=== PATIENT | male | born 1995 | race African-American/Black ===

== ENCOUNTER 2019-04-24 07:15 | Inpatient (IN) | payer SELFPAY ==
[2019-04-24 08:33] LABS: #Basophils 0.1 thou/uL (0.0-0.2); #Eosinphils 0.1 thou/uL (0.0-0.7); #Lymphocytes 1.3 thou/uL (1.20-3.40); #Monocytes 0.6 thou/uL (0.11-0.59); #Neutrophils 8.9 thou/uL (1.40-6.50); %Basophils 0.5 % (0.0-1.0); %Eosinophils 0.9 % (0.0-10.0); %Lymphocytes 11.6 % (21.0-51.0); %Monocytes 5.5 % (0.0-10.0); %Neutrophils 81.5 % (42.0-75.0); Hemoglobin 14.6 g/dL (14.0-18.0); Mean Corpuscular HGB CONC 34.4 g/dL (32.0-36.0); Mean Corpuscular Hemoglobin 32.4 pg (27.0-31.0); Mean Corpuscular Volume 94.2 fL (78.0-98.0); Mean Platelet Volume 7.5 fL (7.4-10.4); Platelet Count 284 thou/uL (130-400); RBC Distribution Width 11.5 % (11.5-14.5)
[2019-04-24 08:36] LABS: ALT (SGPT) 20 U/L (8-55); AST (SGOT) 29 U/L (5-34); Albumin 4.8 g/dL (3.5-5.0); Alkaline Phosphatase 82 U/L (40-110); Anion Gap 12 mmol/L (10-20); BUN (Urea Nitrogen) 11 mg/dL (8.9-20.6); Bilirubin, Total 0.5 mg/dL (0.2-1.2); Calc. Creatinine Clearance 0 mL/min (70-130); Calcium 9.4 mg/dL (7.8-10.44); Carbon Dioxide 25 mmol/L (22-29); Chloride 103 mmol/L (98-107); Estimated GFR-MDRD Greater than 90; Globulin 2.6 g/dL (2.4-3.5); Glucose 128 mg/dL (70-105); Lipase 19 U/L (8-78); Potassium 3.4 mmol/L (3.5-5.1); Protein, Total 7.4 g/dL (6.0-8.3); Sodium 137 mmol/L (136-145)
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
[2019-04-24] MEDS ORDERED: Ondansetron PF 4 MG/2 ML Vial ONE (09:13)
[2019-04-24] MEDS ORDERED: Morphine 4 MG/ML VIAL ONE (09:13)
[2019-04-24 09:46] LABS: Bilirubin Negative (Negative); Blood, Urine Negative (Negative); Clarity Clear (Clear); Glucose, Urine (Dipstick) Normal (Negative); Leukocyte Negative Leu/uL (Negative); Nitrite Negative (Negative); Protein, Urine (Dipstick) Negative (Neg-Trace); Urobilinogen Normal mg/dL (Less than 2)
[2019-04-24] MEDS ORDERED: Dextrose 5% in Water 1,000 ML IV PRN (10:41)
[2019-04-24] MEDS ORDERED: Morphine 2 MG/ML SYRINGE SLOW IVP PRN (10:41)
[2019-04-24] MEDS ORDERED: Dextrose 50% Abboject 50 ML SYRINGE SLOW IVP PRN (10:41)
[2019-04-24] MEDS ORDERED: Ondansetron PF 4 MG/2 ML Vial IVP PRN (10:41)
[2019-04-24] MEDS ORDERED: TETANUS AND DIPHTHERIA TOX/PF 0.5 ML DISP.SYRIN IM ONE (10:41)
[2019-04-24] MEDS ORDERED: hydrALAZINE 20 MG/ML VIAL SLOW IVP PRN (10:41)
[2019-04-24] MEDS ORDERED: Ondansetron ODT 4 MG TAB PO PRN (10:41)
[2019-04-24] MEDS ORDERED: Morphine 4 MG/ML VIAL SLOW IVP PRN ×2 (10:41→20:51)
[2019-04-24] MEDS ORDERED: traMADol HCl 50 MG TAB PO PRN ×2 (10:50)
[2019-04-24] MEDS ORDERED: Potassium Phosphate 30 MMOL in Sodium Chloride 0.9% 500 ML IVPB SCH (11:00)
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
[2019-04-24 11:15] LABS: Lactic Acid 1.6 mmol/L (0.5-2.2)
[2019-04-24 11:26] LABS: Prothrombin Time 13.1 SEC (12.0-14.7)
[2019-04-24 11:38] LABS: Magnesium 1.8 mg/dL (1.6-2.6)
[2019-04-24 11:41] LABS: Phosphorus 1.9 mg/dL (2.3-4.7)
[2019-04-24] MEDS ORDERED: Acetaminophen 500 MG TAB ONE (12:56)
[2019-04-24] MEDS ORDERED: Adacel (T-DAP) 0.5 ML SYRINGE ONE (12:56)
[2019-04-24] MEDS: Sodium Chloride 0.9% 1,000 ML IV SCH ×3 (13:30→23:18)
[2019-04-24] MEDS: Acetaminophen 500 MG TAB PO SCH ×2 (13:32→19:12)
[2019-04-24] MEDS ORDERED: Iopamidol-370 76% 500 ML 1 ML ONE (15:25)
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
[2019-04-24 16:57] LABS: Hemoglobin 12.7 g/dL (14.0-18.0)
[2019-04-24] MEDS ORDERED: Lidocaine 1% w/Epinephrine 1:200K 30 ML VIAL ONE (17:40)
[2019-04-24] MEDS ORDERED: Lidocaine 1% w/Epinephrine 1:100K 20 ML VIAL IJ SCH (18:00)
[2019-04-24 18:25] VITALS: BMI 25.8
[2019-04-24] MEDS ORDERED: Acetaminophen/Codeine 30-300mg Tablet PO PRN (22:13)
[2019-04-24] MEDS: Acetaminophen/Codeine 30-300mg Tablet PO PRN (22:35)
[2019-04-24] MEDS: Senokot S 8.6-50 MG TAB PO SCH (22:35)
[2019-04-24] MEDS: Famotidine/PF 20 mg/2ml Vial SLOW IVP SCH (22:41)
[2019-04-24] MEDS: Acetaminophen 325 MG TAB PO SCH (23:18)
[2019-04-25 00:33] LABS: Amphetamine Not Detected (NotDetected); Barbiturates Screen Not Detected (NotDetected); Benzodiazepine Screen Not Detected (NotDetected); Cocaine Metabolite Screen Not Detected (NotDetected); Medtox Control Line Valid? VALID (VALID); Medtox Reader # READER 4; Methadone Not Detected (NotDetected); Methamphetamine Not Detected (NotDetected); Opiate Screen Not Detected (NotDetected); Oxycodone Screen Not Detected (NotDetected); Phencyclidine (PCP) Not Detected (NotDetected); THC/Cannabinoid Screen Detected (NotDetected); Tricyclic Screen Not Detected (NotDetected)
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
[2019-04-25] MEDS: Acetaminophen/Codeine 30-300mg Tablet PO PRN (05:27)
[2019-04-25] MEDS: Acetaminophen 325 MG TAB PO SCH ×2 (05:28→11:19)
[2019-04-25 05:51] LABS: #Eosinphils 0.1 thou/uL (0.0-0.7); #Lymphocytes 1.7 thou/uL (1.20-3.40); #Monocytes 0.8 thou/uL (0.11-0.59); #Neutrophils 4.5 thou/uL (1.40-6.50); %Basophils 0.5 % (0.0-1.0); %Lymphocytes 23.8 % (21.0-51.0); %Monocytes 11.1 % (0.0-10.0); %Neutrophils 62.6 % (42.0-75.0); Hemoglobin 12.8 g/dL (14.0-18.0); Mean Corpuscular HGB CONC 33.9 g/dL (32.0-36.0); Mean Corpuscular Hemoglobin 32.7 pg (27.0-31.0); Mean Corpuscular Volume 96.5 fL (78.0-98.0); Mean Platelet Volume 7.1 fL (7.4-10.4); Platelet Count 224 thou/uL (130-400); RBC Distribution Width 11.6 % (11.5-14.5); Red Blood Cell (RBC) Count 3.93 mill/uL (4.70-6.10); White Blood Cell (WBC) Count 7.2 thou/uL (4.8-10.8)
[2019-04-25 06:30] LABS: Phosphorus 2.8 mg/dL (2.3-4.7)
[2019-04-25 06:31] LABS: Anion Gap 10 mmol/L (10-20); BUN (Urea Nitrogen) 6 mg/dL (8.9-20.6); Calc. Creatinine Clearance 167 mL/min (70-130); Calcium 8.6 mg/dL (7.8-10.44); Carbon Dioxide 26 mmol/L (22-29); Chloride 105 mmol/L (98-107); Estimated GFR-MDRD Greater than 90; Glucose 97 mg/dL (70-105); Potassium 3.7 mmol/L (3.5-5.1); Sodium 137 mmol/L (136-145)
[2019-04-25] MEDS ORDERED: Polyethylene Glycol 3350 17 GM Packet PO SCH (09:00)
[2019-04-25] MEDS: Bacitracin 1 PK TOP SCH ×2 (09:29→14:42)
[2019-04-25] MEDS: Famotidine/PF 20 mg/2ml Vial SLOW IVP SCH (09:29)
[2019-04-25] MEDS: Senokot S 8.6-50 MG TAB PO SCH (09:29)
[2019-04-25] MEDS: Sodium Chloride 0.9% 1,000 ML IV SCH (09:30)
[2019-04-25] MEDS ORDERED: traMADol HCl 50 MG TAB PO PRN (09:44)
[2019-04-25 10:36] VITALS: BP 133/80; TEMP 97.7
[2019-04-25] MEDS ORDERED: Cyclobenzaprine 10 MG TAB PO PRN (13:01)
[2019-04-25] MEDS ORDERED: Ibuprofen 600 MG TAB PO SCH (14:00)
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
== END 2019-04-25 16:19 | disposition home or self-care (01) | DRG 605 ==
LOC: ERS 07:15 → ERHOLD 11:11 → SURG A 15:37
PROVIDERS: ADMIT Neuromusculoskeletal Medicine & OMM; ATTEND Neuromusculoskeletal Medicine & OMM
PROC: 0HQKXZZ Repair Right Lower Leg Skin, External Approach (ICD-10-PCS; principal; 2019-04-24)
DX: S30.811A Abrasion of abdominal wall, initial encounter (principal); M25.552 Pain in left hip; S81.011A Laceration without foreign body, right knee, initial encounter; E87.6 Hypokalemia; M41.9 Scoliosis, unspecified; F17.210 Nicotine dependence, cigarettes, uncomplicated; F41.9 Anxiety disorder, unspecified; R40.2362 Coma scale, best motor response, obeys commands, at arrival to emergency department; R40.2142 Coma scale, eyes open, spontaneous, at arrival to emergency department; R40.2252 Coma scale, best verbal response, oriented, at arrival to emergency department; V89.2XXA Person injured in unspecified motor-vehicle accident, traffic, initial encounter; Y92.415 Exit ramp or entrance ramp of street or highway as the place of occurrence of the external cause; W22.11XA Striking against or struck by driver side automobile airbag, initial encounter
CPT/HCPCS: 36415; 71045; 74177; 80048; 80053; 80306; 80307; 81003; 83605; 83690; 83735; 84100; 85025; 85610; 85730; 86850; 86900; 86901; 90714; 90715; 96361; 96374; 96375; G0390; J2270; J2405; J7050; Q9967; S0028

== ENCOUNTER 2019-05-27 06:43 | Emergency (ER) | payer SELFPAY | END 2019-05-27 06:55 | disposition home or self-care (01) | LOC: ERS 06:43 | DX: J02.9 Acute pharyngitis, unspecified (principal); F41.9 Anxiety disorder, unspecified | CPT/HCPCS: 99281 ==